=== PATIENT | male | born 1975 ===

== ENCOUNTER 2024-08-13 07:14 | Emergency (ER) | payer OTHER, SELFPAY ==
[2024-08-13 07:28] VITALS: BP 146/99
[2024-08-13 07:36] VITALS: BP 157/99
[2024-08-13 08:00] VITALS: BP 133/99; BMI 25.1
[2024-08-13] MEDS: TORADOL 30 MG IV (08:08)
--- NOTE | 2024-08-13 08:08 | ED.GENMED ---
History of Present Illness
General
Chief Complaint: Chest Pain
Source: patient
Exam Limitations: none
Time Seen by Provider: 08/13/24 07:35
Nursing documentation reviewed up to this point in time: agreed with
History of Present Illness
History of Present Illness:
49-year-old male limited past medical history pressure-like pain in his anterior chest wall onset about 3 weeks ago
He went on vacation recently in [place] had no pain during the vacation he was very active, no chest pain or shortness of breath during the vacation but returned today while driving to work his father is in his 70s has cardiac stents and A-fib
mother at a young age from sarcoid
Patient states he had similar pain a few years ago thinks it was a pulled muscle
Review of Systems
Review of Systems
All Other Systems: Not applicable
Constitutional: Denies fever or fatigue
Respiratory: Reports no symptoms; Denies trouble breathing
Cardiac: Reports chest pain; Denies diaphoresis or syncope
ABD/GI: Reports no symptoms
Musculoskeletal: Reports no symptoms
Skin: Reports no symptoms
Neurological: Reports no symptoms
Psychiatric: Reports no symptoms
Phy Exam
Physical Exam
Physical Exam:
Physical Exam
General: no apparent distress, not acutely ill
Neck: No jaundice
Heart: s1/s2 regular rate and rhythm, no murmur. equal radial pulses.
Lungs: no acute respiratory distress. clear bilaterally
Abdomen: Nontender
Neuro: alert and oriented. no focal neurological deficits
Skin: no rash
Psychiatric: well kept. interactive and cooperative
Extremities: no edema. no calf tenderness.
Scores
Heart Score for Chest Pain Patients
STEMI patient?: No
History: Slightly or Non-Suspicious
ECG: Normal
Age: >45 - <65 years
Risk Factors: 1 or 2 Risk Factors
Troponin: </= Normal Limit
Heart Score for Chest Pain Patients: 2
Heart Score Risk: 2.5% MACE over next 6 weeks
Course
Orders/Labs/Results
Orders:
Orders
08/13/24 07:16
EKG [Electrocardiogram (*1)] Stat
Reason for Study: Chest Pain
08/13/24 07:17
EKG- Treatment ONCE
08/13/24 07:43
CR Chest - 2 Views Urgent
Comment:
Reason For Exam: cp
08/13/24 07:58
Complete Blood Count/With Diff Urgent
Comprehensive Metabolic Panel Urgent
Lipase Urgent
Magnesium Urgent
TSH Urgent
Troponin I Urgent
08/13/24 08:01
D-Dimer Urgent
08/13/24 08:05
Ketorolac [Toradol] 30 mg IV NOW STA
08/13/24 09:00
Flush (0.9% Sodium Chloride) [Flush (Nss)] See Dose Instructions IV PER PROTOCOL
Abnormal Lab Results
08/13/24
07:58
Absolute Monos (auto) 0.9 H 10^3/uL
(0.1-0.6)
Monocytes % 11.2 H %
(1.7-9.3)
Chloride 109 H mmol/L
(98-107)
ALT 52 H U/L
(0-50)
08/13/24 07:58
08/13/24 07:58
Vital Signs
Initial and Last Documented VS:
Initial Vital Signs
Temp Pulse Resp BP Pulse Ox
98.5 F 77 16 146/99 98
08/13/24 07:28 08/13/24 07:28 08/13/24 07:28 08/13/24 07:28 08/13/24 07:28
Last Documented Vital Signs
Temp Pulse Resp BP Pulse Ox
98.5 F 74 14 133/99 99
08/13/24 07:28 08/13/24 08:00 08/13/24 08:00 08/13/24 08:00 08/13/24 08:00
*Critical Care Note
Total Time (30-74mins, 75-104mins- exclusive of procedures): Not Applicable
Update Note
Update Note:
9 PM patient feels well, vital signs are stable troponin noted D-dimer noted chest x-ray noted
ED Attending Note
-
Portions of this chart may have been created with voice recognition software.� Occasional wrong word or��sound alike� substitutions may have occurred due to the inherent limitations of voice recognition software.
Discharge Plan
Departure
Patient Disposition: Home (Routine Discharge)
Date of Disposition: 08/13/24
Time of Disposition: 08:58
Patient with high blood pressure during this ER visit?: No
Condition: Good
Discharge Problem:
Chest pain
Instructions: Chest Pain PCP Follow Up
Referrals:
Khanh Rich MD [Active] - Next open appointment
Fco Garcia DO [Community] - Next open appointment
Interventions
Interventions:
*Risk Screen - Suicide Last Done: 08/13/24 07:28
*General Assessment Last Done: 08/13/24 08:19
*Neglect/Abuse Screening Last Done: 08/13/24 07:28
*ED- Fall Risk Assessment Last Done: 08/13/24 08:10
*ED COVID-19 Vaccine History Last Done: 08/13/24 08:10
ED- Cardiac Assessment Last Done: 08/13/24 08:20
Discharge Date and Time
Print Language: [place] CITIZ[place]
[2024-08-13 08:11] LABS: % Basophils 0.7 % (0-2); % Eosinophils 0.9 % (0-6); % Immature Granulocytes 0.3 % (0-0.5); % Lymphocytes 31.4 % (20.5-51.1); % Monocytes 11.2 % (1.7-9.3); % Neutrophils 55.5 % (42.2-75.2); Absolute Basophils 0.1 10^3/uL (0-0.2); Absolute Eosinophils 0.1 10^3/uL (0-0.7); Absolute Lymphocytes 2.4 10^3/uL (1.2-3.4); Absolute Monocytes 0.9 10^3/uL (0.1-0.6); Absolute Neutrophils 4.3 10^3/uL (1.4-6.5); Hematocrit 45.8 % (39.0-52.0); Hemoglobin 15.4 g/dL (13.0-18.0); Mean Corp Hgb Conc. 33.6 g/dL (33.0-37.0); Mean Corpuscular Volume 92.3 fL (80.0-94.0); Mean Platelet Volume 9.7 fL (7.4-10.4); Nucleated Red Blood Cells % 0 % (-); Platelet Count 344 10^3/uL (130-400); Red Blood Cell Count 4.96 10^6/uL (4.70-6.10); Red Cell Dist. Width 13.4 % (11.5-14.5); White Blood Cell Count 7.7 10^3/uL (4.8-10.8)
[2024-08-13 08:25] LABS: ALT (SGPT) 52 U/L (0-50); AST (SGOT) 31 U/L (17-59); Albumin 4.6 g/dl (3.5-5.0); Alkaline Phosphatase 63 U/L (38-126); Blood Urea Nitrogen 20 mg/dl (9-20); Calcium 9.8 mg/dl (8.4-10.2); Carbon Dioxide 23 mmol/L (22-30); Chloride 109 mmol/L (98-107); Estimated Creatinine Clearance 105 ml/min; Glucose 99 mg/dl (70-99); Lipase 41 U/L (23-300); Magnesium 2.1 mg/dl (1.6-2.3); Potassium 4.5 mmol/L (3.5-5.1); Sodium 142 mmol/L (135-145); Total Bilirubin 0.4 mg/dl (0.2-1.3); Total Protein 7.6 g/dl (6.3-8.2); eGFR > 60.00
[2024-08-13 08:32] LABS: D-Dimer < 0.27 ug/mlFEU (0.00-0.50)
[2024-08-13 08:37] LABS: Troponin I < 0.012 ng/ml
[2024-08-13 08:56] LABS: TSH 0.97 uIU/ml (0.47-4.68)
[2024-08-13 09:19] VITALS: BP 126/90
[2024-08-13 09:42] VITALS: BP 126/90
== END 2024-08-13 09:43 | disposition home or self-care (01) ==
LOC: EMR 07:14
PROVIDERS: EMERGENCY PHYSICIAN Emergency Medicine
DX: R07.89 Other chest pain (principal)
CPT/HCPCS: 99284; 96374; 71046; 80053; 83690; 83735; 84443; 84484; 85025; 85379; 93005

== ENCOUNTER → 2024-11-18 07:02 | Outpatient (REF) | payer OTHER, SELFPAY | LOC: HWRCS 07:02 | PROVIDERS: ATTENDING PHYSICIAN Internal Medicine Cardiovascular Disease; FAMILY PHYSICIAN Family Medicine | DX: R06.02 Shortness of breath (principal) | CPT/HCPCS: 93306 ==

== ENCOUNTER → 2024-11-21 07:26 | Outpatient (REF) | payer OTHER, SELFPAY | LOC: RCS 07:26 | PROVIDERS: ATTENDING PHYSICIAN Internal Medicine Cardiovascular Disease; FAMILY PHYSICIAN Family Medicine | DX: R07.89 Other chest pain (principal) | CPT/HCPCS: 93017 ==